=== PATIENT | female | born 1990 | race African-American/Black ===

== ENCOUNTER 2018-03-01 13:37 | Emergency (ER) | payer MEDICAID ==
[~2018-03-01] VITALS: Ht 170.2 cm; Wt 65.0 kg
[2018-03-01 13:58] VITALS: BP 112/72
[2018-03-01] MEDS ORDERED: KETOROLAC 60MG/2ML VIAL IM ONE (16:45)
== END 2018-03-01 18:18 | disposition home or self-care (01) ==
LOC: ER 13:37
DX: M25.512 Pain in left shoulder (principal); V49.49XA Driver injured in collision with other motor vehicles in traffic accident, initial encounter; Y93.89 Activity, other specified; Y92.410 Unspecified street and highway as the place of occurrence of the external cause
CPT/HCPCS: 71045; 73030; 81025; 96372; 99284; J1885

== ENCOUNTER 2018-11-04 13:20 | Emergency (ER) | payer MEDICAID, OTHER ==
[~2018-11-04] VITALS: Ht 165.1 cm; Wt 56.0 kg
[2018-11-04 14:15] VITALS: BP 122/88
== END 2018-11-04 14:10 | disposition home or self-care (01) ==
LOC: ER 13:20
DX: R06.02 Shortness of breath (principal); R07.81 Pleurodynia; R45.1 Restlessness and agitation
CPT/HCPCS: 99283